=== PATIENT | male | born 1985 | race Hispanic/Latino ===

== ENCOUNTER 2020-07-29 18:39 | Emergency (ER) | payer OTHER ==
[~2020-07-29] VITALS: Ht 182.9 cm; Wt 104.3 kg
[2020-07-29] MEDS ORDERED: ACETAMINOPHEN 325 MG TAB PO NR (19:00)
== END 2020-07-29 20:40 | disposition home or self-care (01) ==
LOC: ER 18:42
DX: R50.9 Fever, unspecified (principal); R11.2 Nausea with vomiting, unspecified; U07.1 COVID-19; R51.9 Headache, unspecified
CPT/HCPCS: 99283